=== PATIENT | female | born 1940 | race Caucasian/White ===

== ENCOUNTER 2020-07-28 23:43 | Inpatient (IN) ==
[2020-07-28] MEDS ORDERED: NORMAL SALINE 1,000 ML IV ONE (23:55)
[2020-07-28] MEDS ORDERED: ACETAMINOPHEN WITH CODEINE 1 EACH TABLET PO ONE (23:56)
--- NOTE | 2020-07-29 00:02 | ERNOTE ---
Back Pain ER HPI Date of Service: 07/28/20 Presenting Symptoms: other - Weakness, fever Time Seen by Provider: 07/28/20 23:52 Source: patient, EMS Exam Limitations: no limitations Immunizations: IMMUNIZATION HX History of Influenza Vaccine Yes Hx Pneumococcal Vaccination No Allergies/Adverse Reactions: Allergies No Known Allergies Allergy (Unverified 07/28/20 23:56) Home Medications: HOME MEDICATIONS Acetaminophen with Codeine [Tylenol-Codeine 300 MG/30 MG] 2 ea PO BID 07/28/20 [Last Taken Unknown] Amlodipine Besylate 5 mg PO DAILY 07/28/20 [Last Taken Unknown] Vitamin D 1 tab PO DAILY 07/28/20 [Last Taken Unknown] Warfarin Sodium [Coumadin] 4 mg PO DAILY 07/28/20 [Last Taken Unknown] traMADol HCL [Tramadol HCl] 50 mg PO BID 07/28/20 [Last Taken Unknown] Glyburide 1 tab PO DAILY 07/29/20 [Last Taken Unknown] Narrative: This patient is a 79-year-old female who arrived by ambulance. She called the ambulance because she was too weak to get up. She said that she has not felt well for the past couple days. She has some back pain along her waist. It was initially on the left but has moved to the right. She normally has back pain and takes Tylenol 3 and tramadol for it. She has not taken any since noon, at least 12 hours ago. She has had urinary frequency for the past 3 days. She has some diarrhea yesterday. She began coughing yesterday. She felt like she was running a fever. The umbrella repairer got a temperature of 102. The paramedics had a temperature of 99. She is also complaining of some left abdominal pain. Review of Systems - Review of Systems Constitutional: Present: fever, malaise EYE: Absent: blurred vision, double vision ENT: Absent: ear pain, nose congestion, nasal drainage, sore throat Respiratory: Present: cough. Absent: shortness of breath Cardiology: Absent: chest pain, syncope Gastrointestinal/Abdominal: Present: diarrhea, abdominal pain - Lower abdomen. Absent: nausea, vomiting, constipation Genitourinary: Present: frequency. Absent: pain, dysuria, hematuria Musculoskeletal: Present: back pain Skin: Present: rash - Low abdominal Neurological: Absent: headache Endocrine: Present: no symptoms reported Hematologic/Lymphatic: Present: no symptoms reported Psych: Present: no symptoms reported Medical History (Last Reviewed 07/29/20 @ 00:04 by Emery Medellin MD) Chronic pain Diabetes History of DVT (deep vein thrombosis) Hypertension Surgical History: Surgical History (Last Reviewed 07/29/20 @ 00:04 by Emery Medellin MD) History of appendectomy History of section History of cholecystectomy History of knee replacement procedure of right knee Family History: Family History (Last Reviewed 07/29/20 @ 00:04 by Emery Medellin MD) Mother Hypertension Social History: (Last Updated 07/29/20 @ 00:04 by Ev Ramon RN) Tobacco: Smoking Status: Never smoker Alcohol: alcohol intake: current alcohol intake frequency: holiday/special occasion Substance Use: substance use type: does not use Physical Exam - Physical Exam General Appearance: Present: alert, no apparent distress, obese Head Exam: Present: normal inspection, no evidence of injury Eye Exam: Normal inspection: bilateral Ears, Nose, Throat: Present: normal ENT inspection Neck: Present: normal inspection, supple Respiratory: Present: no respiratory distress, normal breath sounds, no accessory muscle use, chest nontender, lungs clear Cardiovascular/Chest: Present: regular rate, rhythm, no murmur Gastrointestinal/Abdominal: Present: normal bowel sounds, nondistended, soft, no organomegaly, tenderness - Right sided abdominal tenderness with deep palpation Back Exam: Present: normal inspection, normal range of motion, no CVA tenderness Extremity Exam: Present: normal inspection Neurological Exam: Present: alert, oriented, normal mood/affect, other - No gross lateralizing deficit. She was not able to transfer from the ambulance cart to the table without help. Skin Exam: Present: normal color, warm/dry, other - She has scaly erythematous skin over the lower abdomen. Progress - Results and Orders Patient's Lab Results:: I have reviewed the patient's lab results. Results and Orders: Laboratory Tests 07/28/20 07/28/20 07/29/20 00:10 23:59 00:10 WBC 10.8 H RBC 4.27 Hgb 12.0 L Hct 38.7 MCV 90.6 MCH 28.1 MCHC 31.0 L RDW 14.1 H Plt Count 219 MPV 10.4 Immature Gran % (Auto) 0.20 Immature Gran # (Auto) 0.02 Neutrophils % 85.2 H Lymphocytes % 7.5 L Monocytes % 6.9 Eosinophils % 0.0 Basophils % 0.2 Nucleated RBC % 0.0 Neutrophils # 9.2 H Lymphocytes # 0.81 L Monocytes # 0.7 Eosinophils # 0.0 Absolute Basophils 0.0 PT INR (Anticoag Therapy) Sodium 137 Plasma Sodium 139 Potassium 4.7 H Chloride 103 Carbon Dioxide 18.8 L Anion Gap 19.9 H BUN 42 H Creatinine 2.32 H Est GFR (Non-Af Amer) 22 L D BUN/Creatinine Ratio 18.1 Random Glucose 225 H Lactic Acid, Venous 1.2 Calcium 9.1 Calcium Adj for Albumin 9.6 Total Bilirubin 1.5 H AST 18 ALT 17 L Alkaline Phosphatase 78 Total Protein 7.6 Albumin 3.0 L Urine Color Urine Appearance Urine pH Ur Specific [place] Urine Protein Urine Glucose (UA) Urine Ketones Urine Blood Urine Nitrate Urine Bilirubin Urine Urobilinogen Ur Leukocyte Esterase Urine RBC Urine WBC Ur Epithelial Cells Urine Bacteria Urine Culture Comments 07/29/20 07/29/20 00:10 00:22 WBC RBC Hgb Hct MCV MCH MCHC RDW Plt Count MPV Immature Gran % (Auto) Immature Gran # (Auto) Neutrophils % Lymphocytes % Monocytes % Eosinophils % Basophils % Nucleated RBC % Neutrophils # Lymphocytes # Monocytes # Eosinophils # Absolute Basophils PT 17.7 H INR (Anticoag Therapy) 1.75 H Sodium Plasma Sodium Potassium Chloride Carbon Dioxide Anion Gap BUN Creatinine Est GFR (Non-Af Amer) BUN/Creatinine Ratio Random Glucose Lactic Acid, Venous Calcium Calcium Adj for Albumin Total Bilirubin AST ALT Alkaline Phosphatase Total Protein Albumin Urine Color Yellow Urine Appearance Cloudy Urine pH 6.0 Ur Specific [place] 1.025 Urine Protein 100 H Urine Glucose (UA) Negative Urine Ketones 5 Urine Blood 50 H Urine Nitrate Positive H Urine Bilirubin 1 H Urine Urobilinogen Normal Ur Leukocyte Esterase 100 H Urine RBC 25-50 H Urine WBC 25-50 H Ur Epithelial Cells 0-5 Urine Bacteria 2+ H Urine Culture Comments Culture to follow - Vital Signs Patient's Vital Signs:: I have reviewed the patient's vital signs. Vital Signs: Vital Signs 07/28/20 23:45 Temperature 37.7 C Pulse Rate 82 Respiratory Rate 16 Blood Pressure 157/53 H O2 Sat by Pulse Oximetry 94 - X-Ray X-Ray #1 X-Ray: chest Interpretation: Interp. by me X-ray Comments: Portable AP chest x-ray. There are some increased markings on the right side near the heart but it appears similar to an EKG from January 11, 2006. No acute process. - Progress/Reassessment Chief Complaint: Back Pain Plan - Plan Plan: The patient has UTI. She has generalized weakness and is not able to take care of herself. She is interested in staying for observation. Dr. Zhou agreed to observe the patient. Departure Clinical Impression: UTI (urinary tract infection) - Departure Disposition: Still a patient Condition: Stable Referrals: Elsa Hunt, [Primary Care Provider] -
[2020-07-29 00:21] LABS: Hematocrit 38.7 % (37.0-47.0); Mean Cell Volume 90.6 fl (78-100); Mean Corpuscular Hemoglobin 28.1 pg (27-31); Mean Platelet Volume 10.4 fl (8-12.5); Neutrophil # 9.2 K/mm3 (1.3-6.0); Neutrophil % 85.2 % (42-75.0); Platelet Count 219 K/mm3 (150-450); Red Blood Count 4.27 M/mm3 (4.2-5.4); Red Cell Distribution Width 14.1 % (11.5-14.0); White Blood Count 10.8 K/mm3 (4.0-10.5)
[2020-07-29 00:30] LABS: Prothrombin Time (Patient) 17.7 Seconds (9.1-10.7)
[2020-07-29 00:31] LABS: INR 1.75 INR (0.92-1.08)
[2020-07-29 00:33] LABS: Anion Gap 19.9 mmol/L (6.8-13.8); BUN/Creatinine Ratio 18.1 (9.0-21.6); Bilirubin, Total 1.5 mg/dL (0.0-1.1); Ca. Corrected For Albumin 9.6 mg/dL (8.4-10.2); Calcium * 9.1 mg/dL (7.9-10.9); Carbon Dioxide 18.8 mmol/L (24-32.6); Potassium 4.7 mmol/L (3.4-4.6); Total Protein 7.6 gm/dL (6.2-8.2)
[2020-07-29 00:36] LABS: Urine Bilirubin 1 mg/dl (NEGATIVE); Urine Blood 50 /ul (NEGATIVE); Urine Ketone 5 mg/dL (NEGATIVE); Urine Protein 100 mg/dL (NEGATIVE); Urine Specific Gravity 1.025 SP.GR. (1.005-1.010); Urine Urobilinogen Normal (NORMAL)
[2020-07-29 00:44] LABS: Urine Appearance Cloudy (CLEAR); Urine Bacteria 2+; Urine Color Yellow; Urine Nitrite Positive (NEGATIVE); Urine RBC 25-50 /hpf (0-5); Urine WBC 25-50 /hpf (0-5)
[2020-07-29] MEDS ORDERED: NORMAL SALINE 1,000 ML IV ONE (00:53)
[2020-07-29] MEDS ORDERED: CEFEPIME HCL 1 GM/100 ML BAG IV ONE ×2 (01:02)
[2020-07-29] MEDS ORDERED: NON-FORMULARY 1 DOSE DOSE IV SCH (01:15)
[2020-07-29] MEDS ORDERED: CEFEPIME HCL 2 GM in DEXTROSE 5 % IN WATER 100 ML IV ONE ×2 (01:30)
[2020-07-29] MEDS ORDERED: cefTRIAXone SODIUM 1,000 MG/100 ML BAG IV ONE (01:39)
--- NOTE | 2020-07-29 09:24 | HP ---
Chief Complaint - Chief Complaint Date of Service: 07/29/20 Time of Service: 09:24 Chief Complaint: weakness, increased urinary frequency History of Present Illness: Patient with PMHx of recent DVT on warfarin, HTN, lymphedema, diabetes, chronic back pain called EMS for weakness. She was unable to get up overnight. She lives alone, and her son in law helps her around the house, but she is independent. She's also been having increased urinary frequency, urinating 11 times the night before last. She reports the fire crew recorded a fever, and her appetite has been decreased. She endorses some weight loss. She's also having some low abdominal pain. She has been shaking overnight and couldn't get warm. She has diarrhea, and but states this is chronic. Workup in the ED found positive signs of infection on UA, with nitrates, leukocyte esterase and 2+ bacteria. WBC mildly elevated at 10.8. Her creatinine is 2.32 and GFR is 22. Her most recent GFR in our system is 46, from 5 years ago. She has been told that her kidney function is low, but not significantly low. She has been afebrile since arrival. She was given a dose of Rocephin in the ED, and is in observation status for improvement in her weakness and UTI treatment. Medical History (Last Reviewed 07/29/20 @ 00:04 by Emery Medellin MD) Chronic pain Diabetes History of DVT (deep vein thrombosis) Hypertension Surgical History: Surgical History (Last Updated 07/29/20 @ 03:12 by Miranda Mccarthy RN) History of appendectomy History of cholecystectomy History of hysterectomy History of knee replacement procedure of right knee Family History: Family History (Last Reviewed 07/29/20 @ 00:04 by Emery Medellin MD) Mother Hypertension Social History: (Last Updated 07/29/20 @ 00:04 by Ev Ramon RN) Tobacco: Smoking Status: Never smoker Alcohol: alcohol intake: current alcohol intake frequency: holiday/special occasion Substance Use: substance use type: does not use Review Of Systems (GEN) - Review of Systems Generalized/Overall Review: Present: Weakness, Fever Respiratory: Absent: Cough Cardiac: Present: Edema - chronic. Absent: Chest Pain Abdominal: Present: Abdominal Pain, Diarrhea Genitourinary: Present: Frequency. Absent: Burning, Dysuria Musculoskeletal: Present: Back Pain - chronic, takes tylenol 3 and tramadol Skin: Present: Other - skin thickening of anterior bilateral lower legs Immunizations: IMMUNIZATION HX History of Influenza Vaccine Yes Hx Pneumococcal Vaccination No Allergies/Adverse Reactions: Allergies Allergy/AdvReac Type Severity Reaction Status Date / Time No Known Allergies Allergy Unverified 07/28/20 23:56 Home Medications: HOME MEDICATIONS Acetaminophen with Codeine [Tylenol-Codeine 300 MG/30 MG] 2 ea PO BID 07/28/20 [Last Taken Unknown] Amlodipine Besylate 10 mg PO DAILY 07/28/20 [Last Taken Unknown] Warfarin Sodium [Coumadin] 3 mg PO DAILY 07/28/20 [Last Taken Unknown] traMADol HCL [Tramadol HCl] 50 mg PO BID 07/28/20 [Last Taken Unknown] Benazepril HCl 10 mg PO DAILY 07/29/20 [Last Taken Unknown] Cholecalciferol [Vitamin D] 1,000 unit PO BID 07/29/20 [Last Taken Unknown] Furosemide 20 mg PO DAILY 07/29/20 [Last Taken Unknown] Glimepiride 4 mg PO DAILY 07/29/20 [Last Taken Unknown] Iron Polysaccharide Complex [Polysaccharide Iron] 150 mg PO DAILY 07/29/20 [Last Taken Unknown] Labetalol HCl [Trandate] 200 mg PO QPM 07/29/20 [Last Taken Unknown] Labetalol HCl [Trandate] 300 mg PO QAM 07/29/20 [Last Taken Unknown] Warfarin Sodium 3.5 mg PO 2XW 07/29/20 [Last Taken Unknown] rOPINIRole HCL [Requip] 1 mg PO TID 07/29/20 [Last Taken Unknown] Exam - Exam Vital Signs: Vital Signs - Last Taken Temp 37.0 C 07/29/20 06:38 Pulse 86 07/29/20 06:38 Resp 28 H 07/29/20 06:38 BP 143/52 07/29/20 07:30 Pulse Ox 90 L 07/29/20 06:38 Constitutional: Present: Alert, Cooperative, No distress, Other - tutu hugger in place, Elderly, Morbidly obese Respiratory: Present: normal breath sounds, no respiratory distress Cardiovascular/Chest: Present: regular rate, rhythm Abdomen: Present: soft, suprapubic tenderness Extremity: Absent: lower extremity edema Skin Exam: Present: other - brown raised plaques of bilateral anterior lower legs, 3X10 cm Neurologic: Present: normal mood/affect Eye contact: Present: cooperative, good eye contact Diagnostic Studies: Abnormal Lab Results 07/28/20 07/28/20 07/29/20 Range/Units 00:10 23:59 00:10 WBC 10.8 H (4.0-10.5) K/mm3 Hgb 12.0 L (12.5-16.0) gm/dL MCHC 31.0 L (32-36) g/dl RDW 14.1 H (11.5-14.0) % Neutrophils % 85.2 H (42-75.0) % Lymphocytes % 7.5 L (20-51) % Neutrophils # 9.2 H (1.3-6.0) K/mm3 Lymphocytes # 0.81 L (1.5-3.5) k/mm3 PT 17.7 H (9.1-10.7) Seconds INR (Anticoag Therapy) 1.75 H (0.92-1.08) INR Potassium 4.7 H (3.4-4.6) mmol/L Carbon Dioxide 18.8 L (24-32.6) mmol/L Anion Gap 19.9 H (6.8-13.8) mmol/L BUN 42 H (3-23) mg/dL Creatinine 2.32 H (0.4-1.4) mg/dL Est GFR (Non-Af Amer) 22 L D (60-130) mL/min Random Glucose 225 H (70-110) mg/dL Total Bilirubin 1.5 H (0.0-1.1) mg/dL ALT 17 L (19-67) U/L Albumin 3.0 L (3.4-5.0) gm/dl Urine Protein (NEGATIVE) mg/dL Urine Blood (NEGATIVE) /ul Urine Nitrate (NEGATIVE) Urine Bilirubin (NEGATIVE) mg/dl Ur Leukocyte Esterase (NEGATIVE) /ul Urine RBC (0-5) /hpf Urine WBC (0-5) /hpf Urine Bacteria (NONE) 07/29/20 Range/Units 00:22 WBC (4.0-10.5) K/mm3 Hgb (12.5-16.0) gm/dL MCHC (32-36) g/dl RDW (11.5-14.0) % Neutrophils % (42-75.0) % Lymphocytes % (20-51) % Neutrophils # (1.3-6.0) K/mm3 Lymphocytes # (1.5-3.5) k/mm3 PT (9.1-10.7) Seconds INR (Anticoag Therapy) (0.92-1.08) INR Potassium (3.4-4.6) mmol/L Carbon Dioxide (24-32.6) mmol/L Anion Gap (6.8-13.8) mmol/L BUN (3-23) mg/dL Creatinine (0.4-1.4) mg/dL Est GFR (Non-Af Amer) (60-130) mL/min Random Glucose (70-110) mg/dL Total Bilirubin (0.0-1.1) mg/dL ALT (19-67) U/L Albumin (3.4-5.0) gm/dl Urine Protein 100 H (NEGATIVE) mg/dL Urine Blood 50 H (NEGATIVE) /ul Urine Nitrate Positive H (NEGATIVE) Urine Bilirubin 1 H (NEGATIVE) mg/dl Ur Leukocyte Esterase 100 H (NEGATIVE) /ul Urine RBC 25-50 H (0-5) /hpf Urine WBC 25-50 H (0-5) /hpf Urine Bacteria 2+ H (NONE) Microbiology 07/29/20 00:22 Urine Culture - Preliminary Urine,Catheterized No Growth Laboratory Results WBC 10.8 K/mm3 (4.0-10.5) H 07/28/20 23:59 RBC 4.27 M/mm3 (4.2-5.4) 07/28/20 23:59 Hgb 12.0 gm/dL (12.5-16.0) L 07/28/20 23:59 Hct 38.7 % (37.0-47.0) 07/28/20 23:59 MCV 90.6 fl (78-100) 07/28/20 23:59 MCH 28.1 pg (27-31) 07/28/20 23:59 MCHC 31.0 g/dl (32-36) L 07/28/20 23:59 RDW 14.1 % (11.5-14.0) H 07/28/20 23:59 Plt Count 219 K/mm3 (150-450) 07/28/20 23:59 MPV 10.4 fl (8-12.5) 07/28/20 23:59 Immature Gran % (Auto) 0.20 % (0.001-0.429) 07/28/20 23:59 Immature Gran # (Auto) 0.02 K/mm3 (0.000-0.0310) 07/28/20 23:59 Neutrophils % 85.2 % (42-75.0) H 07/28/20 23:59 Lymphocytes % 7.5 % (20-51) L 07/28/20 23:59 Monocytes % 6.9 % (0.0-9) 07/28/20 23:59 Eosinophils % 0.0 % (0.0-3.0) 07/28/20 23:59 Basophils % 0.2 % (0.0-1.0) 07/28/20 23:59 Nucleated RBC % 0.0 k/mm3 (0-1) 07/28/20 23:59 Neutrophils # 9.2 K/mm3 (1.3-6.0) H 07/28/20 23:59 Lymphocytes # 0.81 k/mm3 (1.5-3.5) L 07/28/20 23:59 Monocytes # 0.7 k/mm3 (0.0-1.0) 07/28/20 23:59 Eosinophils # 0.0 k/mm3 (0.0-0.7) 07/28/20 23:59 Absolute Basophils 0.0 k/mm3 (0.0-0.1) 07/28/20 23:59 PT 17.7 Seconds (9.1-10.7) H 07/29/20 00:10 INR (Anticoag Therapy) 1.75 INR (0.92-1.08) H 07/29/20 00:10 Sodium 137 mmol/L (132-142) 07/28/20 00:10 Plasma Sodium 139 mmol/L (130-142) 07/28/20 00:10 Potassium 4.7 mmol/L (3.4-4.6) H 07/28/20 00:10 Chloride 103 mmol/L (97-106) 07/28/20 00:10 Carbon Dioxide 18.8 mmol/L (24-32.6) L 07/28/20 00:10 Anion Gap 19.9 mmol/L (6.8-13.8) H 07/28/20 00:10 BUN 42 mg/dL (3-23) H 07/28/20 00:10 Creatinine 2.32 mg/dL (0.4-1.4) H 07/28/20 00:10 Est GFR (Non-Af Amer) 22 mL/min (60-130) L D 07/28/20 00:10 BUN/Creatinine Ratio 18.1 (9.0-21.6) 07/28/20 00:10 Random Glucose 225 mg/dL (70-110) H 07/28/20 00:10 Lactic Acid, Venous 1.2 mmol/L (0.4-2.0) 07/29/20 00:10 Calcium 9.1 mg/dL (7.9-10.9) 07/28/20 00:10 Calcium Adj for Albumin 9.6 mg/dL (8.4-10.2) 07/28/20 00:10 Total Bilirubin 1.5 mg/dL (0.0-1.1) H 07/28/20 00:10 AST 18 U/L (0-48) 07/28/20 00:10 ALT 17 U/L (19-67) L 07/28/20 00:10 Alkaline Phosphatase 78 U/L (50-170) 07/28/20 00:10 Total Protein 7.6 gm/dL (6.2-8.2) 07/28/20 00:10 Albumin 3.0 gm/dl (3.4-5.0) L 07/28/20 00:10 Urine Color Yellow 07/29/20:22 Urine Appearance Cloudy (CLEAR) 07/29/20 00:22 Urine pH 6.0 pH (5.0-7.0) 07/29/20 00:22 Ur Specific [place] 1.025 SP.GR. (1.005-1.010) 07/29/20 00:22 Urine Protein 100 mg/dL (NEGATIVE) H 07/29/20 00:22 Urine Glucose (UA) Negative mg/dL (NEGATIVE) 07/29/20 00:22 Urine Ketones 5 mg/dL (NEGATIVE) 07/29/20 00:22 Urine Blood 50 /ul (NEGATIVE) H 07/29/20 00:22 Urine Nitrate Positive (NEGATIVE) H 07/29/20 00:22 Urine Bilirubin 1 mg/dl (NEGATIVE) H 07/29/20 00:22 Urine Urobilinogen Normal EU/dl (NORMAL) 07/29/20 00:22 Ur Leukocyte Esterase 100 /ul (NEGATIVE) H 07/29/20 00:22 Urine RBC 25-50 /hpf (0-5) H 07/29/20 00:22 Urine WBC 25-50 /hpf (0-5) H 07/29/20 00:22 Ur Epithelial Cells 0-5 /hpf (0-5) 07/29/20 00:22 Urine Bacteria 2+ (NONE) H 07/29/20 00:22 Urine Culture Comments Culture to follow 07/29/20 00:22 SARS-CoV-2 (PCR) Not detected (NotDetected) 07/29/20 01:15 Assessment/Plan - Narrative Narrative: She was given rocephin last night for a UTI. Urine culture pending. She has been afebrile, is interactive, does not appear acutely ill on exam, so will change to po cefdinir. PT eval pending to help evaluate discharge planning. If she is able to walk to the bathroom, she can possibly DC later this afternoon. Will try to find what her baseline renal function is, to help determine if she has an acute renal injury. Will continue home meds. - Assessment/Plan (1) UTI (urinary tract infection) Problem: Acute (2) Diabetes mellitus Problem: Acute (3) Hypertension Problem: Acute (4) Chronic back pain Problem: Acute (5) Chronic renal disease Problem: Acute (6) DVT (deep venous thrombosis) Assessment: She states her DVT was within the last 6 months, so will continue warfarin. Admission INR of 1.75. Since she is on abx, will need increased monitoring over the next couple of weeks. If she is still here tomorrow, will recheck INR in am. Problem: Acute
[2020-07-29] MEDS ORDERED: WARFARIN SODIUM 1 MG TABLET PO SCH (09:30)
[2020-07-29] MEDS: amLODIPine BESYLATE 5 MG TABLET PO SCH (10:00)
[2020-07-29] MEDS: traMADol HCL 50 MG TABLET PO SCH ×2 (10:00→21:13)
[2020-07-29] MEDS: ENALAPRIL MALEATE 5 MG TABLET PO SCH (10:02)
[2020-07-29 12:20] LABS: Albumin * 2.6 gm/dl (3.4-5.0); Anion Gap 17.5 mmol/L (6.8-13.8); BUN/Creatinine Ratio 20.7 (9.0-21.6); Bilirubin, Total 0.9 mg/dL (0.0-1.1); Ca. Corrected For Albumin 9.3 mg/dL (8.4-10.2); Calcium * 8.5 mg/dL (7.9-10.9); Carbon Dioxide 21.8 mmol/L (24-32.6); Potassium 4.3 mmol/L (3.4-4.6); Total Protein 6.9 gm/dL (6.2-8.2)
[2020-07-29] MEDS: rOPINIRole HCL 1 MG TABLET PO SCH ×2 (13:18→16:23)
[2020-07-29] MEDS: NORMAL SALINE 1,000 ML IV PRN ×2 (14:30→21:13)
[2020-07-29] MEDS: WARFARIN SODIUM 4 MG TABLET PO SCH (16:23)
[2020-07-29] MEDS: LABETALOL HCL 200 MG TABLET PO SCH (16:23)
[2020-07-29] MEDS ORDERED: WARFARIN SODIUM 2.5 MG, WARFARIN SODIUM 1 MG PO SCH ×2 (17:00)
[2020-07-29] MEDS: ACETAMINOPHEN WITH CODEINE 1 EACH TABLET PO SCH (21:12)
[2020-07-29] MEDS: CEFDINIR 300 MG CAPSULE PO SCH (21:13)
[2020-07-30 07:06] LABS: INR 1.5 INR (0.92-1.08); Prothrombin Time (Patient) 15.3 Seconds (9.1-10.7)
[2020-07-30 07:10] LABS: Albumin * 2.5 gm/dl (3.4-5.0); Anion Gap 13.6 mmol/L (6.8-13.8); BUN/Creatinine Ratio 22.3 (9.0-21.6); Bilirubin, Total 0.7 mg/dL (0.0-1.1); Ca. Corrected For Albumin 9.2 mg/dL (8.4-10.2); Calcium * 8.3 mg/dL (7.9-10.9); Carbon Dioxide 23.6 mmol/L (24-32.6); Potassium 4.2 mmol/L (3.4-4.6); Total Protein 6.8 gm/dL (6.2-8.2)
[2020-07-30] MEDS: amLODIPine BESYLATE 5 MG TABLET PO SCH (08:38)
[2020-07-30] MEDS: GLIMEPIRIDE 4 MG TABLET PO SCH (08:38)
[2020-07-30] MEDS: CEFDINIR 300 MG CAPSULE PO SCH (08:38)
[2020-07-30] MEDS: ENALAPRIL MALEATE 5 MG TABLET PO SCH (08:38)
[2020-07-30] MEDS: rOPINIRole HCL 1 MG TABLET PO SCH ×3 (08:38→16:42)
[2020-07-30] MEDS: LABETALOL HCL 100 MG TABLET PO SCH (08:39)
[2020-07-30] MEDS: traMADol HCL 50 MG TABLET PO SCH ×2 (08:41→20:24)
[2020-07-30] MEDS: ACETAMINOPHEN WITH CODEINE 1 EACH TABLET PO SCH ×2 (08:41→20:24)
[2020-07-30] MEDS ORDERED: WARFARIN SODIUM 2 MG TABLET PO ONE (10:37)
[2020-07-30] MEDS: WARFARIN SODIUM 4 MG TABLET PO SCH (16:41)
[2020-07-30] MEDS: LABETALOL HCL 200 MG TABLET PO SCH (16:42)
--- NOTE | 2020-07-30 19:42 | PN ---
Subjective - Date and Time Seen Date: 07/30/20 Time: 19:42 Subjective Narrative: Patient sitting comfortably in her chair, still concerns with some suprapubic pain but otherwise states she feels okay. She did have a fever earlier this morning but unsure if it was due to the bear hugger she was wearing or if it was an actual fever. Temp returned to normal at recheck a couple hours later. She did have 1+ blood culture for gram-negative bacilli. She needs a repeat blood culture due to the fever. We will stop her oral antibiotics and start her on an IV antibiotic. The rest of her vitals been stable. Objective - Review of Systems Generalized/Overall Review: Reports: Weakness, Chills, Fever EENTM: Reports: No Symptoms Reported Respiratory: Reports: No Symptoms Reported Cardiac: Reports: No Symptoms Reported Abdominal: Reports: No Symptoms Reported Genitourinary Symptoms: Reports: Burning, Frequency Musculoskeletal Complaints: Reports: Other - Lymphedema bilaterally lower extremities Neurological: Reports: No Symptoms Reported Skin: Reports: Other - Chronic lesion right lower leg, unchanged Endocrine: Reports: No Symptoms Reported - Vitals Vitals: Last Vital Signs Temp 36.6 C 07/30/20 18:16 Pulse 62 07/30/20 18:16 Resp 24 H 07/30/20 18:16 BP 125/49 07/30/20 18:16 Pulse Ox 97 07/30/20 18:16 - Abnormal Lab Findings Abnormal Lab Findings: Abnormal Lab Results 07/30/20 07/30/20 Range/Units 06:31 06:31 PT 15.3 H (9.1-10.7) Seconds INR (Anticoag Therapy) 1.50 H (0.92-1.08) INR Chloride 109 H (97-106) mmol/L Carbon Dioxide 23.6 L (24-32.6) mmol/L BUN 40 H (3-23) mg/dL Creatinine 1.79 H (0.4-1.4) mg/dL Est GFR (Non-Af Amer) 29 L D (60-130) mL/min BUN/Creatinine Ratio 22.3 H (9.0-21.6) ALT 18 L (19-67) U/L Albumin 2.5 L (3.4-5.0) gm/dl - Exam Constitutional: Present: Alert, Oriented x3, Mild distress, Elderly ENT Exam: Present: hearing grossly normal Respiratory: Present: lungs clear, normal breath sounds Cardiovascular/Chest: Present: regular rate, rhythm, no murmur, edema - Chronic lymphedema bilaterally lower extremities Abdomen: Present: suprapubic tenderness. Absent: guarding, rigidity, rebound tenderness, CVA tenderness Extremity: Present: non-tender Skin Exam: Present: normal color Appearance: Present: appropriate appearance, appropriate insight Eye contact: Present: cooperative, good eye contact Thoughts: Present: normal thought pattern, normal mood /affect Assessment/Plan Plan Narrative: 79-year-old female who does not appear to be toxic or acutely ill here for UTI. 1 of 2 blood cultures growing out gram-negative bacilli same that was seen in her urine. Patient was also febrile today even though she was on oral cefdinir. Unsure if it is true fever not but due to this we will repeat blood cultures. Stop the cefdinir started on Rocephin 1 g every 12 hours. Awaiting for repeat blood cultures come back to determine whether or not she needs to continue on IV antibiotics or if she can have this stopped and restart oral medicines for her UTI. Blood cultures will determine ongoing treatment plan. Patient also with an acute kidney injury on top of her chronic kidney disease. Normal GFR's between 35-40, her systolic ventilation. Up to 29 today. Creatinine also improving, down to 1.79. Repeat BMP in the morning. Patient does not need DVT prophylaxis as she is on Coumadin for DVT that was not 6 months. INR was at 1.5 today, extra dose of warfarin given to her today and will repeat INR in the morning. If is not close to therapeutic level tomorrow with recheck then will give her a one-time dose of Lovenox adjusted to GFR. Other vital signs are stable and patient feels well. Back pain is chronic in nature and likely not related to her infection. She denies any changes in her back pain. No CVA tenderness. Continue treatment plan as stated above, nurse will call questions or concerns. 1 hour critical care time spent with patient today, changing her treatment plan, and writing her note. - Problems/Diagnosis (1) Positive blood culture Problem: Acute (2) UTI (urinary tract infection) Problem: Acute (3) Acute kidney injury Problem: Acute (4) Diabetes mellitus Problem: Acute (5) Hypertension Problem: Acute (6) Chronic back pain Problem: Acute (7) Chronic renal disease Problem: Acute
[2020-07-30] MEDS ORDERED: ENOXAPARIN SODIUM 30 MG/0.3 ML SYRG SC SCH (21:45)
[2020-07-31 07:35] LABS: Hematocrit 35.4 % (37.0-47.0); Hemoglobin 10.5 gm/dL (12.5-16.0); Mean Cell Volume 93.2 fl (78-100); Mean Corpuscular Hemoglobin 27.6 pg (27-31); Mean Corpuscular Hgb Conc 29.7 g/dl (32-36); Mean Platelet Volume 10.3 fl (8-12.5); Neutrophil # 4.8 K/mm3 (1.3-6.0); Neutrophil % 69.9 % (42-75.0); Platelet Count 182 K/mm3 (150-450); Red Cell Distribution Width 14.6 % (11.5-14.0); White Blood Count 6.9 K/mm3 (4.0-10.5)
[2020-07-31 07:43] LABS: Calcium * 8.3 mg/dL (7.9-10.9); Carbon Dioxide 24.3 mmol/L (24-32.6); Potassium 4.3 mmol/L (3.4-4.6)
[2020-07-31 07:44] LABS: Prothrombin Time (Patient) 16.7 Seconds (9.1-10.7)
[2020-07-31 07:45] LABS: INR 1.64 INR (0.92-1.08)
[2020-07-31 07:52] LABS: BUN/Creatinine Ratio 22.8 (9.0-21.6)
[2020-07-31] MEDS: LABETALOL HCL 100 MG TABLET PO SCH (09:48)
[2020-07-31] MEDS: rOPINIRole HCL 1 MG TABLET PO SCH ×3 (09:48→18:22)
[2020-07-31] MEDS: GLIMEPIRIDE 4 MG TABLET PO SCH (09:48)
[2020-07-31] MEDS: ENALAPRIL MALEATE 5 MG TABLET PO SCH (09:48)
[2020-07-31] MEDS: amLODIPine BESYLATE 5 MG TABLET PO SCH (09:48)
--- NOTE | 2020-07-31 09:50 | PN ---
Subjective - Date and Time Seen Date: 07/31/20 Time: 09:50 Subjective Narrative: Linette's sitting comfortably in her chair at this time. No concerns today. Currently on IV antibiotics for a 1 out of 2 positive blood culture which is growing gram-negative bacilli. Belly is feeling much better, no suprapubic tenderness today. No issues with her with her bladder today as previously had. Vital signs are stable and she is been afebrile since making the switch over to IV antibiotics. She still has back pain otherwise is feeling much better. Objective - Review of Systems Generalized/Overall Review: Denies: Weakness, Chills, Fever EENTM: Reports: No Symptoms Reported Respiratory: Reports: No Symptoms Reported Cardiac: Reports: No Symptoms Reported Abdominal: Reports: No Symptoms Reported Genitourinary Symptoms: Denies: Burning, Urgency, Frequency Musculoskeletal Complaints: Reports: Back Pain Neurological: Reports: No Symptoms Reported Skin: Reports: No Symptoms Reported Endocrine: Reports: No Symptoms Reported - Vitals Vitals: Last Vital Signs Temp 36.7 C 07/31/20 06:27 Pulse 60 07/31/20 06:27 Resp 18 07/31/20 06:27 BP 110/43 07/31/20 06:27 Pulse Ox 90 L 07/31/20 06:27 - Abnormal Lab Findings Abnormal Lab Findings: Abnormal Lab Results 07/31/20 07/31/20 07/31/20 Range/Units 07:20 07:20 07:20 RBC 3.80 L (4.2-5.4) M/mm3 Hgb 10.5 L (12.5-16.0) gm/dL Hct 35.4 L (37.0-47.0) % MCHC 29.7 L (32-36) g/dl RDW 14.6 H (11.5-14.0) % Lymphocytes % 16.5 L (20-51) % Monocytes % 10.6 H (0.0-9) % Lymphocytes # 1.13 L (1.5-3.5) k/mm3 PT 16.7 H (9.1-10.7) Seconds INR (Anticoag Therapy) 1.64 H (0.92-1.08) INR Chloride 108 H (97-106) mmol/L BUN 45 H (3-23) mg/dL Creatinine 1.97 H (0.4-1.4) mg/dL Est GFR (Non-Af Amer) 26 L (60-130) mL/min BUN/Creatinine Ratio 22.8 H (9.0-21.6) Random Glucose 50 L D (70-110) mg/dL - Exam Constitutional: Present: Alert, Oriented x3, Cooperative, Elderly Respiratory: Present: lungs clear, normal breath sounds Cardiovascular/Chest: Present: regular rate, rhythm, no murmur Abdomen: Present: soft, nontender, nondistended. Absent: CVA tenderness, suprapubic tenderness Appearance: Present: appropriate appearance, appropriate insight Eye contact: Present: cooperative, good eye contact Assessment/Plan Plan Narrative: Is stable and doing well on IV antibiotics. Waiting for blood cultures results that were ordered yesterday. We will continue IV antibiotics until those return. Patient is afebrile otherwise and states her urinary symptoms have significantly improved. No fever since the day before prior to drawing blood cultures. Patient acute kidney injury worsened a little bit likely after starting IV antibiotics. Creatinine went from 1.79 up to 1.97. Still improved from when she came in but we have no baseline so I do not if this is an acute kidney injury versus a chronic stage IV kidney disease. Will repeat BMP in the morning. No SCDs at this time but her INR is appropriate, improving. We will repeat INR in the morning. Still subtherapeutic but better than it was the day before. Due to history of DVT in her leg, no STDs. Otherwise she is stable, has no concerns. Continue current treatment plan. Nurse to call for questions or concerns. - Problems/Diagnosis (1) Positive blood culture Problem: Acute (2) UTI (urinary tract infection) Problem: Acute (3) Acute kidney injury Problem: Acute (4) Diabetes mellitus Problem: Acute (5) Hypertension Problem: Acute (6) Chronic back pain Problem: Acute (7) Chronic renal disease Problem: Acute
[2020-07-31] MEDS: ACETAMINOPHEN WITH CODEINE 1 EACH TABLET PO SCH ×2 (09:51→21:04)
[2020-07-31] MEDS: traMADol HCL 50 MG TABLET PO SCH ×2 (09:55→21:04)
[2020-07-31] MEDS: WARFARIN SODIUM 4 MG TABLET PO SCH (18:22)
[2020-07-31] MEDS: LABETALOL HCL 200 MG TABLET PO SCH (18:23)
[2020-07-31] MEDS: ONDANSETRON HCL 4 MG TABLET PO PRN (22:22)
[2020-08-01 06:46] LABS: Hematocrit 34.5 % (37.0-47.0); Hemoglobin 10.3 gm/dL (12.5-16.0); Mean Corpuscular Hemoglobin 28.1 pg (27-31); Mean Corpuscular Hgb Conc 29.9 g/dl (32-36); Mean Platelet Volume 10.3 fl (8-12.5); Neutrophil # 3.9 K/mm3 (1.3-6.0); Neutrophil % 64.9 % (42-75.0); Platelet Count 229 K/mm3 (150-450); Red Blood Count 3.67 M/mm3 (4.2-5.4); Red Cell Distribution Width 14.6 % (11.5-14.0); White Blood Count 6.1 K/mm3 (4.0-10.5)
[2020-08-01 07:06] LABS: Anion Gap 13.5 mmol/L (6.8-13.8); BUN/Creatinine Ratio 22.3 (9.0-21.6); Calcium * 8.5 mg/dL (7.9-10.9); Carbon Dioxide 25.1 mmol/L (24-32.6); Potassium 4.6 mmol/L (3.4-4.6)
[2020-08-01] MEDS: rOPINIRole HCL 1 MG TABLET PO SCH ×3 (09:47→16:32)
[2020-08-01] MEDS: LABETALOL HCL 100 MG TABLET PO SCH (09:47)
[2020-08-01] MEDS: ENALAPRIL MALEATE 5 MG TABLET PO SCH (09:47)
[2020-08-01] MEDS: amLODIPine BESYLATE 5 MG TABLET PO SCH (09:48)
[2020-08-01] MEDS: GLIMEPIRIDE 4 MG TABLET PO SCH (09:48)
[2020-08-01] MEDS: ACETAMINOPHEN WITH CODEINE 1 EACH TABLET PO SCH ×2 (09:51→20:42)
[2020-08-01] MEDS: traMADol HCL 50 MG TABLET PO SCH ×2 (09:51→20:43)
[2020-08-01] MEDS: ONDANSETRON HCL 4 MG TABLET PO PRN (11:58)
[2020-08-01 12:01] LABS: INR 2.49 INR (0.92-1.08); Prothrombin Time (Patient) 24.8 Seconds (9.1-10.7)
--- NOTE | 2020-08-01 14:00 | PN ---
Subjective - Date and Time Seen Date: 08/01/20 Time: 14:00 Subjective Narrative: She is comfortable today, no acute events overnight. Continue with IV antibiotics. Second set of blood cultures came back 1 of 2 like the first although it was growing out a different bug. Unsure what this really means. The first was gram-negative bacilli which was the same as it was in her urine, the second was gram-positive cocci which is new. Either way though she is doing well, no more fevers, white count continues to trend downward. It is well within the normal range at this point. I think she will be good to go home tomorrow transition to oral antibiotics but we are waiting for speciation and sensitivities to come out which should be sometime tomorrow with a second set of cultures. She is planning on going to a senior living facility who would probably be able to accommodate IV antibiotics for follicular as needed though I do not think this to be the case. Objective - Review of Systems Generalized/Overall Review: Reports: No Symptoms Reported EENTM: Reports: No Symptoms Reported Respiratory: Reports: No Symptoms Reported Cardiac: Reports: No Symptoms Reported Abdominal: Reports: No Symptoms Reported Genitourinary Symptoms: Reports: No Symptoms Reported Musculoskeletal Complaints: Reports: Back Pain Neurological: Reports: No Symptoms Reported Skin: Reports: No Symptoms Reported - Vitals Vitals: Last Vital Signs Temp 36.3 C 08/01/20 10:04 Pulse 58 L 08/01/20 10:04 Resp 18 08/01/20 10:04 BP 137/52 08/01/20 10:04 Pulse Ox 96 08/01/20 10:04 - Abnormal Lab Findings Abnormal Lab Findings: Abnormal Lab Results 08/01/20 08/01/20 08/01/20 Range/Units 06:28 06:28 11:47 RBC 3.67 L (4.2-5.4) M/mm3 Hgb 10.3 L (12.5-16.0) gm/dL Hct 34.5 L (37.0-47.0) % MCHC 29.9 L (32-36) g/dl RDW 14.6 H (11.5-14.0) % Monocytes % 10.5 H (0.0-9) % Eosinophils % 3.6 H (0.0-3.0) % Lymphocytes # 1.24 L (1.5-3.5) k/mm3 PT 24.8 H (9.1-10.7) Seconds INR (Anticoag Therapy) 2.49 H (0.92-1.08) INR Chloride 108 H (97-106) mmol/L BUN 44 H (3-23) mg/dL Creatinine 1.97 H (0.4-1.4) mg/dL Est GFR (Non-Af Amer) 26 L (60-130) mL/min BUN/Creatinine Ratio 22.3 H (9.0-21.6) Random Glucose 46 L (70-110) mg/dL - Exam Constitutional: Present: Alert, Oriented x3, Cooperative, Elderly ENT Exam: Present: hearing grossly normal Neck: Present: non-tender, supple Respiratory: Present: lungs clear, normal breath sounds Cardiovascular/Chest: Present: regular rate, rhythm, no murmur Abdomen: Present: soft, nontender, nondistended. Absent: suprapubic tenderness Skin Exam: Present: normal color, warm/dry Neurologic: Present: normal mood/affect Appearance: Present: appropriate appearance, appropriate insight Eye contact: Present: cooperative, good eye contact Thoughts: Present: normal thought pattern, normal mood /affect Assessment/Plan Plan Narrative: Patient is here for continued IV antibiotics for suspected bacteremia. Her blood cultures now have grown out 2 different bugs on 2 separate blood culture draws. The first 1 is likely more accurate than second 1 is that was the same bug has been going on in her urine. She has been on 3 days now of IV antibiotics and has done well, no fevers or chills and her white count continues to trend downward. She would like to be able to transition over to oral antibiotics tomorrow and sent to the SNF on this regimen. Still not convinced that she actually has bacteremia but with the blood culture showing with the did be had a treat her as if she did. Her urinary tract infection symptoms have resolved. She does have a little bit nausea with eating which I think will also continue to improve. Her back pain is stable, chronic. No changes to be done with at this time. Her kidney function is better than what it was when she first got here but it slightly worsened yesterday into today after being on IV antibiotics which she has been. 1 more bag normal saline ordered and will repeat BMP in the morning. Her INR is still subtherapeutic at 1.65 but is trending upward so we will repeat INR in the morning. 1 additional dose of Coumadin to be given tonight. Otherwise continue current treatment plan, her vital signs are stable, nurses will call with any questions or concerns. 1 hour of critical care time was spent with the patient, reviewing labs, adjusting treatment plans. - Problems/Diagnosis (1) Positive blood culture Problem: Acute (2) UTI (urinary tract infection) Problem: Acute (3) Acute kidney injury Problem: Acute (4) Diabetes mellitus Problem: Acute (5) Hypertension Problem: Acute (6) Chronic back pain Problem: Acute (7) Chronic renal disease Problem: Acute
[2020-08-01] MEDS: WARFARIN SODIUM 4 MG TABLET PO SCH (16:32)
[2020-08-01] MEDS: LABETALOL HCL 200 MG TABLET PO SCH (16:33)
[2020-08-01] MEDS ORDERED: NORMAL SALINE 1,000 ML IV ONE (20:44)
[2020-08-01] MEDS ORDERED: WARFARIN SODIUM 2 MG TABLET PO ONE (20:47)
[2020-08-02 06:35] LABS: Prothrombin Time (Patient) 25.4 Seconds (9.1-10.7)
[2020-08-02 06:41] LABS: INR 2.55 INR (0.92-1.08)
[2020-08-02] MEDS: amLODIPine BESYLATE 5 MG TABLET PO SCH (08:03)
[2020-08-02] MEDS: GLIMEPIRIDE 4 MG TABLET PO SCH (08:03)
[2020-08-02] MEDS: ENALAPRIL MALEATE 5 MG TABLET PO SCH (08:03)
[2020-08-02] MEDS: LABETALOL HCL 100 MG TABLET PO SCH (08:03)
[2020-08-02] MEDS: rOPINIRole HCL 1 MG TABLET PO SCH (08:03)
[2020-08-02] MEDS: ONDANSETRON HCL 4 MG TABLET PO PRN (08:06)
[2020-08-02] MEDS: traMADol HCL 50 MG TABLET PO SCH (08:06)
[2020-08-02] MEDS: ACETAMINOPHEN WITH CODEINE 1 EACH TABLET PO SCH (08:08)
[2020-08-02 08:24] LABS: Hematocrit 33.8 % (37.0-47.0); Hemoglobin 9.8 gm/dL (12.5-16.0); Mean Cell Volume 93.9 fl (78-100); Mean Corpuscular Hemoglobin 27.2 pg (27-31); Mean Platelet Volume 10.4 fl (8-12.5); Neutrophil # 3.6 K/mm3 (1.3-6.0); Neutrophil % 62.2 % (42-75.0); Platelet Count 244 K/mm3 (150-450); Red Cell Distribution Width 14.6 % (11.5-14.0); White Blood Count 5.9 K/mm3 (4.0-10.5)
[2020-08-02 08:34] LABS: Albumin * 2.2 gm/dl (3.4-5.0); Anion Gap 13.5 mmol/L (6.8-13.8); BUN/Creatinine Ratio 23.9 (9.0-21.6); Bilirubin, Total 0.2 mg/dL (0.0-1.1); Ca. Corrected For Albumin 9.4 mg/dL (8.4-10.2); Calcium * 8.3 mg/dL (7.9-10.9); Carbon Dioxide 24.3 mmol/L (24-32.6); Potassium 4.8 mmol/L (3.4-4.6); Total Protein 6.3 gm/dL (6.2-8.2)
[2020-08-02] MEDS ORDERED: SENNOSIDES 8.6 MG TABLET PO PRN (10:14)
[2020-08-02] MEDS ORDERED: POLYETHYLENE GLYCOL 3350 17 GM PACKET PO SCH (10:15)
--- NOTE | 2020-08-02 10:32 | DS ---
(1) UTI (urinary tract infection) Problem: Acute (2) Diabetes mellitus Problem: Chronic (3) Hypertension Problem: Chronic (4) Chronic back pain Problem: Chronic (5) Chronic renal disease Problem: Acute Qualifiers: Chronic kidney disease stage: stage 3 (moderate) (6) DVT (deep venous thrombosis) Problem: Chronic (7) Acute on chronic renal failure Diagnosis(s): Decrease in her renal function has occurred in the interim between her nephrology visit in April and this admission. Problem: Acute Qualifiers: Chronic kidney disease stage: stage 4 (severe) Date of Discharge:: 08/02/20 Hospital Course: Patient with PMHx of recent DVT on warfarin, HTN, lymphedema, diabetes, chronic back pain called EMS for weakness, unable to get up at home. She lives alone, and her son in law helps her around the house, but she is independent. She was having increased urinary frequency, urinating 11 times the night before her admission. She reports the responding fire crew recorded a fever, low abdominal pain, and her appetite has been decreased. She endorses some weight loss. She had diarrhea, and but states this is chronic. Workup in the ED found positive signs of infection on UA, with nitrates, leukocyte esterase and 2+ bacteria, and she was started on Rocephin. WBC mildly elevated at 10.8. Her creatinine is 2.32 and GFR is 22. Chart review in [facility] show that her creatinine in April was around 1.3 and her GFR was 35-40, stage III CKD. She reported improvement in symptoms the first night of admission, so her antibiotic was changed from Rocephin to cefdinir. However, 1/2 blood cultures were positive with the same bacteria as her urine culture, e coli. She spiked a fever on 07/30, so she was changed back to Rocephin. Repeat blood cultures were negative, and the fever did not return. She will be DC'd with cefuroxime. Her renal function did not recover as anticipated despite fluid administration. Her creatinine and GFR on the day of DC were 1.84 and 28, respectively. Recommend sooner follow up with her identification and records commander than previously scheduled. She is taking warfarin for a recent DVT, within the last 6 months by her report. INR on the day of DC was 2.55. She was initially low at 1.75 on admission, and reports having a low INR last week before admission. She was given extra doses of 2 mg warfarin while here. There were discrepancies in her med rec. Will DC with 4 mg warfarin daily. Her family did not feel like she was safe to go home after DC, and she agreed to go to the [facility] for further rehabilitation. Her obesity, reduced renal function, recent DVT, and current debilitation from this UTI make her a fall risk. Procedures Performed: none Results and Findings: Pending Mircobiology Results 07/30/20 11:15 Blood Blood Culture - Preliminary Staphylococcus Species 07/30/20 11:37 Blood Blood Culture - Preliminary NO GROWTH AFTER 48 HOURS 07/29/20 00:10 Blood Blood Culture - Preliminary NO GROWTH AFTER 48 HOURS Lab Pending Results 07/28/20 00:10: Sodium 137, Plasma Sodium 139, Potassium 4.7 H, Chloride 103, Carbon Dioxide 18.8 L, Anion Gap 19.9 H, BUN 42 H, Creatinine 2.32 H, Est GFR (Non-Af Amer) 22 L D, BUN/Creatinine Ratio 18.1, Random Glucose 225 H, Calcium 9.1, Calcium Adj for Albumin 9.6, Total Bilirubin 1.5 H, AST 18, ALT 17 L, Alkaline Phosphatase 78, Total Protein 7.6, Albumin 3.0 L 07/28/20 23:59: WBC 10.8 H, RBC 4.27, Hgb 12.0 L, Hct 38.7, MCV 90.6, MCH 28.1, MCHC 31.0 L, RDW 14.1 H, Plt Count 219, MPV 10.4, Immature Gran % (Auto) 0.20, Immature Gran # (Auto) 0.02, Neutrophils % 85.2 H, Lymphocytes % 7.5 L, Monocytes % 6.9, Eosinophils % 0.0, Basophils % 0.2, Nucleated RBC % 0.0, Neutrophils # 9.2 H, Lymphocytes # 0.81 L, Monocytes # 0.7, Eosinophils # 0.0, Absolute Basophils 0.0 07/29/20 00:10: Lactic Acid, Venous 1.2 07/29/20 00:10: PT 17.7 H, INR (Anticoag Therapy) 1.75 H 07/29/20 00:22: Urine Color Yellow, Urine Appearance Cloudy, Urine pH 6.0, Ur Specific [place] 1.025, Urine Protein 100 H, Urine Glucose (UA) Negative, Urine Ketones 5, Urine Blood 50 H, Urine Nitrate Positive H, Urine Bilirubin 1 H, Urine Urobilinogen Normal, Ur Leukocyte Esterase 100 H, Urine RBC 25-50 H, Urine WBC 25-50 H, Ur Epithelial Cells 0-5, Urine Bacteria 2+ H, Urine Culture Comments Culture to follow 07/29/20 01:15: SARS-CoV-2 (PCR) Not detected 07/29/20 12:03: Sodium 139, Plasma Sodium 140, Potassium 4.3, Chloride 104, Carbon Dioxide 21.8 L, Anion Gap 17.5 H, BUN 44 H, Creatinine 2.13 H, Est GFR (Non-Af Amer) 24 L, BUN/Creatinine Ratio 20.7, Random Glucose 192 H, Calcium 8.5, Calcium Adj for Albumin 9.3, Total Bilirubin 0.9, AST 21, ALT 16 L, Alkaline Phosphatase 65, Total Protein 6.9, Albumin 2.6 L 07/30/20 06:31: Sodium 142, Plasma Sodium 142, Potassium 4.2, Chloride 109 H, Carbon Dioxide 23.6 L, Anion Gap 13.6, BUN 40 H, Creatinine 1.79 H, Est GFR (Non-Af Amer) 29 L D, BUN/Creatinine Ratio 22.3 H, Random Glucose 98 D, Calcium 8.3, Calcium Adj for Albumin 9.2, Total Bilirubin 0.7, AST 23, ALT 18 L, Alkaline Phosphatase 69, Total Protein 6.8, Albumin 2.5 L 07/30/20 06:31: PT 15.3 H, INR (Anticoag Therapy) 1.50 H 07/31/20 07:20: WBC 6.9 D, RBC 3.80 L, Hgb 10.5 L, Hct 35.4 L, MCV 93.2, MCH 27.6, MCHC 29.7 L, RDW 14.6 H, Plt Count 182, MPV 10.3, Immature Gran % (Auto) 0.40, Immature Gran # (Auto) 0.03, Neutrophils % 69.9, Lymphocytes % 16.5 L, Monocytes % 10.6 H, Eosinophils % 2.3, Basophils % 0.3, Nucleated RBC % 0.0, Neutrophils # 4.8, Lymphocytes # 1.13 L, Monocytes # 0.7, Eosinophils # 0.2, Absolute Basophils 0.0 07/31/20 07:20: PT 16.7 H, INR (Anticoag Therapy) 1.64 H 07/31/20 07:20: Sodium 141, Plasma Sodium 140, Potassium 4.3, Chloride 108 H, Carbon Dioxide 24.3, Anion Gap 13.0, BUN 45 H, Creatinine 1.97 H, Est GFR (Non- Af Amer) 26 L, BUN/Creatinine Ratio 22.8 H, Random Glucose 50 L D, Calcium 8.3 08/01/20 06:28: WBC 6.1, RBC 3.67 L, Hgb 10.3 L, Hct 34.5 L, MCV 94.0, MCH 28.1, MCHC 29.9 L, RDW 14.6 H, Plt Count 229, MPV 10.3, Immature Gran % (Auto) 0.30, Immature Gran # (Auto) 0.02, Neutrophils % 64.9, Lymphocytes % 20.4, Monocytes % 10.5 H, Eosinophils % 3.6 H, Basophils % 0.3, Nucleated RBC % 0.0, Neutrophils # 3.9, Lymphocytes # 1.24 L, Monocytes # 0.6, Eosinophils # 0.2, Absolute Basophils 0.0 08/01/20 06:28: Sodium 142, Plasma Sodium 141, Potassium 4.6, Chloride 108 H, Carbon Dioxide 25.1, Anion Gap 13.5, BUN 44 H, Creatinine 1.97 H, Est GFR (Non- Af Amer) 26 L, BUN/Creatinine Ratio 22.3 H, Random Glucose 46 L, Calcium 8.5 08/01/20 11:47: PT 24.8 H, INR (Anticoag Therapy) 2.49 H 08/02/20 06:10: PT 25.4 H, INR (Anticoag Therapy) 2.55 H 08/02/20 06:10: WBC 5.9, RBC 3.60 L, Hgb 9.8 L, Hct 33.8 L, MCV 93.9, MCH 27.2, MCHC 29.0 L, RDW 14.6 H, Plt Count 244, MPV 10.4, Immature Gran % (Auto) 0.30, Immature Gran # (Auto) 0.02, Neutrophils % 62.2, Lymphocytes % 23.2, Monocytes % 9.9 H, Eosinophils % 4.1 H, Basophils % 0.3, Nucleated RBC % 0.0, Neutrophils # 3.6, Lymphocytes # 1.36 L, Monocytes # 0.6, Eosinophils # 0.2, Absolute Basophils 0.0 08/02/20 06:10: Sodium 141, Plasma Sodium 141, Potassium 4.8 H, Chloride 108 H, Carbon Dioxide 24.3, Anion Gap 13.5, BUN 44 H, Creatinine 1.84 H, Est GFR (Non-A f Amer) 28 L, BUN/Creatinine Ratio 23.9 H, Random Glucose 104 D, Calcium 8.3, Calcium Adj for Albumin 9.4, Total Bilirubin 0.2, AST 13, ALT 18 L, Alkaline Phosphatase 66, Total Protein 6.3, Albumin 2.2 L Discharge Location: Other - [facility] Disposition: swing bed (SNF) Condition: Stable Level of Care: SNF Discharge Activity: Activity as tolerated Discharge Diet: Consistent carbs Longterm Therapy: Physical Therapy, Occupation Therapy Referrals: Peewee Whitfield MD [Primary Care Provider] - One Week (following DC from [facility]) Additional Patient Instructions (free text): Please schedule with her identification and records commander within 1 month of DC from the [facility]. Prescriptions (Any new or edited meds): Cefuroxime Axetil [Cefuroxime] 250 mg PO BID #7 tab Transmission Status: Pending to [facility] Complete Home Medications List: Complete Home Medication List: Acetaminophen with Codeine [Tylenol-Codeine 300 MG/30 MG] 2 ea PO BID 07/28/20 Amlodipine Besylate 10 mg PO DAILY 07/28/20 traMADol HCL [Tramadol HCl] 50 mg PO BID 07/28/20 Benazepril HCl 10 mg PO DAILY 07/29/20 Cholecalciferol [Vitamin D] 1,000 unit PO BID 07/29/20 Furosemide 20 mg PO DAILY 07/29/20 Glimepiride 4 mg PO DAILY 07/29/20 Iron Polysaccharide Complex [Polysaccharide Iron] 150 mg PO DAILY 07/29/20 Labetalol HCl [Trandate] 200 mg PO QPM 07/29/20 Labetalol HCl [Trandate] 300 mg PO QAM 07/29/20 Warfarin Sodium 3.5 mg PO 2XW 07/29/20 rOPINIRole HCL [Requip] 1 mg PO TID 07/29/20 Cefuroxime Axetil [Cefuroxime] 250 mg PO BID #7 tab 08/02/20 Polyethylene Glycol 3350 [Miralax] 17 gm PO DAILY #1 bottle 08/02/20 Sennosides [Senokot] 8.6 mg PO BID PRN #1 bottle 08/02/20 Warfarin Sodium [Coumadin] 4 mg PO DAILY #30 tab 08/02/20 Forms: Patient Portal Registration
[2020-08-02 12:23] VITALS: BP 140/82
[2020-08-02] MEDS ORDERED: WARFARIN SODIUM 2 MG TABLET PO SCH (17:00)
== END 2020-08-02 12:15 | DRG 690 ==
LOC: ER 23:43 → MS 23:43
PROVIDERS: ADMIT Family Medicine; ATTEND Family Medicine
DX: R53.1 Weakness; Z86.718 Personal history of other venous thrombosis and embolism; N17.9 Acute kidney failure, unspecified; N18.4 Chronic kidney disease, stage 4 (severe); E66.9 Obesity, unspecified; Z79.84 Long term (current) use of oral hypoglycemic drugs; Z20.822 Contact with and (suspected) exposure to COVID-19; Z68.41 Body mass index [BMI] 40.0-44.9, adult; Z79.01 Long term (current) use of anticoagulants; I12.9 Hypertensive chronic kidney disease with stage 1 through stage 4 chronic kidney disease, or unspecified chronic kidney disease; N39.0 Urinary tract infection, site not specified; E11.22 Type 2 diabetes mellitus with diabetic chronic kidney disease